=== PATIENT | male | born 1970 | race Caucasian/White ===

== ENCOUNTER 2019-08-11 13:18 | Outpatient (CLI) | payer OTHER, SELFPAY ==
--- NOTE | ~2019-08-11 | XR_ITS ---
EXAMINATION: XR chest 2V DATE: 08/11/2019 13:45 INDICATION: Hemoptysis. Lower respiratory tract infection. TECHNIQUE: Frontal and lateral views of the chest were obtained. COMPARISON: None. FINDINGS: The chest demonstrates clear lungs without pneumonia, pleural effusion, or pneumothorax. Th e heart size is normal. There is mild chronic anterior wedging of T12-L2 vertebral bodies. IMPRESSION: 1. No acute cardiopulmonary disease. Reviewed, dictated and finalized at location A. CLE TRIMMER
== END 2019-08-11 13:19 | disposition home or self-care (01) ==
LOC: ANHIMG 13:26
PROVIDERS: PCP Internal Medicine
DX: R04.2 Hemoptysis (principal); J22 Unspecified acute lower respiratory infection
CPT/HCPCS: 71046

== ENCOUNTER 2019-08-12 07:21 | Outpatient (CLI) | payer OTHER, SELFPAY ==
--- NOTE | ~2019-08-12 | US_ITS ---
US right upper quadrant INDICATION: Polycythemia PROCEDURE: Realtime right upper abdominal ultrasound. COMPARISON: No prior studies for comparison. FINDINGS: The pancreas is normal without focal mass or pancreatic ductal dilation. Liver echotexture is normal without focal mass or intrahepatic biliary dilatation. There is normal directional flow i n the portal vein. The gallbladder is normal without stones, gallbladder wall thickening or pericholecystic fluid. Comm on bile duct measures 4 mm. No sonographic Simmons's sign. IMPRESSION: 1: Normal limited abdominal ultrasound. Reviewed, dictated and finalized at location B. SAMPLER
--- NOTE | ~2019-08-12 | US_ITS ---
US renal BI 08/12/2019 08:15 Procedure: Realtime transabdominal ultrasound of the kidneys and bladder. Indication: Polycythemia Comparison: No prior studies for comparison. Findings: Renal echotexture is normal bilaterally without hydronephrosis, contour deforming mass or r enal calculus. The right kidney measures 12.6 cm and left kidney measures 12.9 cm. Bladder within no rmal limits. Impression: 1: Unremarkable renal ultrasound. No stones, masses or hydronephrosis. Reviewed, dictated and finalized at location B. ING MASTER Impression: 1: Unremarkable renal ultrasound. No stones, masses or hydronephrosis.
== END 2019-08-12 07:22 | disposition home or self-care (01) ==
PROVIDERS: PCP Internal Medicine
DX: D75.1 Secondary polycythemia (principal); E34.9 Endocrine disorder, unspecified; F17.200 Nicotine dependence, unspecified, uncomplicated
CPT/HCPCS: 76705; 76775